=== PATIENT | female | born 1995 ===

== ENCOUNTER 2022-08-21 22:59 | Emergency (ER) | payer MEDICAID, OTHER ==
[~2022-08-21] VITALS: Ht 170.2 cm; Wt 108.3 kg
[2022-08-21 23:03] VITALS: BP 131/89
== END 2022-08-22 04:00 | disposition left against medical advice (07) ==
LOC: ER 22:59
DX: Z53.21 Procedure and treatment not carried out due to patient leaving prior to being seen by health care provider (principal)